=== PATIENT | female | born 1955 | race Caucasian/White ===

== ENCOUNTER → 2016-07-30 | Outpatient (CLI) | payer OTHER ==
[~2016-07-30] MED LIST: LEVO25TA2 PO
--- NOTE | 2016-07-30 08:40 | KCIC ---
EXAM: Bone densitometry. HISTORY: Postmenopausal female presents for osteoporosis screening. FINDINGS: BMD: (g/cm2) - AP Spine Total (L1-L4): 0.818 - Total left Hip: 0.626 T-Score: - AP Spine Total (L1-L4): -2.1 - Total left Hip: -2.6 Z-Score: - AP Spine Total (L1-L4): -0.5 - Total left Hip: -1.5 World Health Organization criteria for BMD interpretation classify patients as Normal (T-score at or above -1.0), Osteopenic (T-score between -1.0 and -2.5), or Osteoporotic (T-score at or below -2.5). IMPRESSION: 1. Osteoporosis measured at the left hip. 2. Osteopenia measured at the lumbar spine. Electronically signed by: Bev Spence (Jul 30, 2016 08:39:28)
== END | disposition home or self-care (01) ==
LOC: KCIC DEXA 07:56
PROVIDERS: ATTEND Physician Assistant Medical
DX: M81.8 Other osteoporosis without current pathological fracture (principal); M85.88 Other specified disorders of bone density and structure, other site
CPT/HCPCS: 77080